=== PATIENT | female | born 1950 | race Caucasian/White ===

== ENCOUNTER → 2021-02-20 | Outpatient (CLI) | payer MEDICARE, OTHER | LOC: CT 02-19 09:00 | DX: R06.02 Shortness of breath (principal); R55 Syncope and collapse; R79.89 Other specified abnormal findings of blood chemistry; M54.9 Dorsalgia, unspecified; Z86.73 Personal history of transient ischemic attack (TIA), and cerebral infarction without residual deficits | CPT/HCPCS: Q9967 ==